=== PATIENT | female | born 1990 | race Caucasian/White ===

== ENCOUNTER 2017-01-11 11:11 | Observation (INO) | payer MEDICAID ==
[~2017-01-11] VITALS: Ht 152.4 cm; Wt 93.9 kg
[2017-01-11 12:13] VITALS: BP 120/61
[2017-01-11 12:17] LABS: BASOPHILS % (AUTO) 0.1 % (0.0-2.0); EOSINOPHILS % (AUTO) 0.9 % (1.0-6.0); HEMATOCRIT 36.1 % (36-46); HEMOGLOBIN 11.7 g/dL (12.0-16.0); LYMPHOCYTES # (AUTO) 2.6 K/uL (1.0-4.8); LYMPHOCYTES % (AUTO) 22.6 % (22.0-44.0); MEAN CORPUSCULAR HEMOGLOBIN 26.8 pg (26.0-34.0); MEAN CORPUSCULAR HGB CONC 32.3 G/dL (31.0-37.0); MEAN CORPUSCULAR VOLUME 83 fL (80-100); MONOCYTES # (AUTO) 0.6 K/uL (0.1-1.0); MONOCYTES % (AUTO) 5.3 % (2.0-9.0); NEUTROPHILS # (AUTO) 8.2 K/uL (1.8-7.7); NEUTROPHILS % (AUTO) 71.1 % (40.0-70.0); RED BLOOD CELL COUNT(AUTO) 4.35 MIL/uL (4.00-5.20); RED CELL DISTRIBUTION WIDTH 14.9 % (11.5-14.5); WHITE BLOOD COUNT (AUTO) 11.5 K/uL (4.5-11.0)
[2017-01-11 12:25] LABS: INR 0.9 (0.9-1.1)
== END 2017-01-11 15:40 | disposition home or self-care (01) ==
LOC: 4S 11:17
PROVIDERS: ADMIT Obstetrics & Gynecology; ATTEND Obstetrics & Gynecology
DX: O26.893 Other specified pregnancy related conditions, third trimester (principal); Z3A.33 33 weeks gestation of pregnancy; R10.2 Pelvic and perineal pain
CPT/HCPCS: 36415; 59025; 76805; 85025; 85384; 85610; 85730; 86850; 86900; 86901; G0378

== ENCOUNTER 2017-01-11 15:44 | Emergency (ER) | payer MEDICAID ==
[~2017-01-11] VITALS: Ht 154.9 cm; Wt 94.0 kg
[2017-01-11 15:52] VITALS: BP 124/41
== END 2017-01-11 17:10 | disposition home or self-care (01) ==
LOC: EMS 15:47
DX: O26.893 Other specified pregnancy related conditions, third trimester (principal); M54.5 Low back pain; Z00.00 Encounter for general adult medical examination without abnormal findings; Z3A.33 33 weeks gestation of pregnancy
CPT/HCPCS: 82962; 99282